=== PATIENT | female | born 1995 | race Caucasian/White ===

== ENCOUNTER 2016-10-24 15:17 | Emergency (ER) | payer OTHER ==
[2016-10-24 15:29] VITALS: BP 119/64; PULSE 66; RESP 18; TEMP 98.6; O2SAT 96
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
[2016-10-24] MEDS ORDERED: ACETAMINOPHEN 500 MG TAB ONE (17:15)
[2016-10-24] MEDS ORDERED: ACETAMINOPHEN 500 MG TAB PO ONE (17:23)
== END 2016-10-24 18:53 | disposition home or self-care (01) ==
DX: S06.0X0A Concussion without loss of consciousness, initial encounter (principal); S16.1XXA Strain of muscle, fascia and tendon at neck level, initial encounter; V49.40XA Driver injured in collision with unspecified motor vehicles in traffic accident, initial encounter; Y92.410 Unspecified street and highway as the place of occurrence of the external cause; Y99.8 Other external cause status; Y93.89 Activity, other specified

== ENCOUNTER 2016-10-29 20:21 | Emergency (ER) | payer OTHER ==
[2016-10-29 20:27] VITALS: PULSE 71; RESP 16; TEMP 98.2
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
[2016-10-29 22:23] VITALS: BP 105/68; O2SAT 96
== END 2016-10-29 22:23 | disposition home or self-care (01) ==
DX: S06.0X0A Concussion without loss of consciousness, initial encounter (principal); V89.2XXA Person injured in unspecified motor-vehicle accident, traffic, initial encounter; Y92.410 Unspecified street and highway as the place of occurrence of the external cause; Y99.8 Other external cause status; Y93.89 Activity, other specified
CPT/HCPCS: 82947-QW